=== PATIENT | male | born 1975 | race Native Hawaiian/Other Pacific Islander ===

== ENCOUNTER 2019-02-22 10:37 | Outpatient (CLI) | payer OTHER | END 2019-02-22 20:17 | disposition home or self-care (01) | LOC: RAD 10:37 | DX: R07.81 Pleurodynia (principal) ==

== ENCOUNTER 2019-09-06 08:04 | Day surgery (SDC) | payer OTHER ==
[~2019-09-06] VITALS: Ht 30.5 cm; Wt 0.5 kg
[2019-09-06 09:11] LABS: PARTIAL THROMBOPLASTIN TIME 29.4 SECONDS (24.5-33.6)
[2019-09-06 10:00] LABS: PLATELET COUNT 110 K/uL (142-355)
== END 2019-09-06 11:30 | disposition home or self-care (01) ==
LOC: OR 08:04
PROVIDERS: Pain Medicine Interventional Pain Medicine
PROC: 3E0T3BZ Introduction of Anesthetic Agent into Peripheral Nerves and Plexi, Percutaneous Approach (ICD-10-PCS; principal; 2019-09-06)
PROC: 3E0T33Z Introduction of Anti-inflammatory into Peripheral Nerves and Plexi, Percutaneous Approach (ICD-10-PCS; 2019-09-06)
DX: M47.816 Spondylosis without myelopathy or radiculopathy, lumbar region (principal)
CPT/HCPCS: 80053; 85027; 85610; 85730; 93005; J1100; J2001; J2250; J2704; J3490

== ENCOUNTER 2019-11-20 08:02 | Day surgery (SDC) | payer OTHER ==
[~2019-11-20] VITALS: Ht 30.5 cm; Wt 0.5 kg
[2019-11-20 08:44] LABS: PLATELET COUNT 118 K/uL (142-355)
[2019-11-20 08:48] LABS: POTASSIUM 4.1 mmol/L (3.6-5.2)
[2019-11-20 09:04] LABS: PARTIAL THROMBOPLASTIN TIME 32.3 SECONDS (24.5-33.6)
== END 2019-11-20 10:46 | disposition home or self-care (01) ==
LOC: OR 08:02
PROVIDERS: Pain Medicine Interventional Pain Medicine
PROC: 3E0T3BZ Introduction of Anesthetic Agent into Peripheral Nerves and Plexi, Percutaneous Approach (ICD-10-PCS; principal; 2019-11-20)
PROC: 3E0T33Z Introduction of Anti-inflammatory into Peripheral Nerves and Plexi, Percutaneous Approach (ICD-10-PCS; 2019-11-20)
DX: M47.816 Spondylosis without myelopathy or radiculopathy, lumbar region (principal); Z79.01 Long term (current) use of anticoagulants
CPT/HCPCS: 80053; 85027; 85610; 85730; J1100; J2001; J2704; J3490

== ENCOUNTER 2020-01-01 08:13 | Day surgery (SDC) | payer OTHER ==
[~2020-01-01] VITALS: Ht 30.5 cm; Wt 0.5 kg
[2020-01-01 09:20] LABS: POTASSIUM 3.6 mmol/L (3.6-5.2)
[2020-01-01 09:30] LABS: PARTIAL THROMBOPLASTIN TIME 38.1 SECONDS (24.5-33.6)
[2020-01-01 09:33] LABS: PLATELET COUNT 123 K/uL (142-355)
== END 2020-01-01 11:10 | disposition home or self-care (01) ==
LOC: OR 08:13
PROVIDERS: Pain Medicine Interventional Pain Medicine
PROC: 3E0T3TZ Introduction of Destructive Agent into Peripheral Nerves and Plexi, Percutaneous Approach (ICD-10-PCS; principal; 2020-01-01)
PROC: BR16YZZ Fluoroscopy of Lumbar Facet Joint(s) using Other Contrast (ICD-10-PCS; 2020-01-01)
DX: M47.816 Spondylosis without myelopathy or radiculopathy, lumbar region (principal); Z79.01 Long term (current) use of anticoagulants
CPT/HCPCS: 80053; 85027; 85610; 85730; J2001; J2704; J7120

== ENCOUNTER 2022-08-20 12:03 | Outpatient (CLI) | payer OTHER | END 2022-08-20 19:25 | disposition home or self-care (01) | LOC: MRI 12:03 | PROVIDERS: ATTEND Pain Medicine Interventional Pain Medicine | DX: M54.16 Radiculopathy, lumbar region (principal) | CPT/HCPCS: 36415; 82565; 84520; A9576 ==

== ENCOUNTER 2022-10-08 11:53 | Outpatient (CLI) | payer OTHER | END 2022-10-08 19:42 | disposition home or self-care (01) | LOC: US 11:53 | PROVIDERS: ATTEND Pain Medicine Interventional Pain Medicine | DX: I73.9 Peripheral vascular disease, unspecified (principal) ==